=== PATIENT | female | born 1950 | race Caucasian/White ===

== ENCOUNTER 2024-08-14 14:25 | Inpatient (IN) | payer MEDICARE, OTHER ==
[2024-08-14 16:00] VITALS: BP 117/69; PULSE 75; RESP 15; TEMP 98.7; O2SAT 93
[2024-08-14 16:30] VITALS: RESP 14; O2SAT 95
[2024-08-14] MEDS ORDERED: magnesium sulf-water 2g/50mL 50 ML IV PRN (17:10)
[2024-08-14] MEDS ORDERED: mag hydrox/Alum hydrox/simeth 30ml oral suspension PO PRN (17:10)
[2024-08-14] MEDS ORDERED: HYDROcodone/acetaminophen 5mg/325mg tablet PO PRN (17:10)
[2024-08-14] MEDS ORDERED: potassium Cl 40MEQ/1/2NS 520ml 520 ML IV PRN (17:10)
[2024-08-14] MEDS ORDERED: glucagon, human recombinant 1mg kit SUBCUT PRN (17:10)
[2024-08-14] MEDS ORDERED: PERFLUTREN PROTEIN-A MICROSPHR (Optison) 0.22 MG/ML 3ML VIAL IV ONE (17:10)
[2024-08-14] MEDS: normal saline 1000ml 1,000 ML IV SCH (17:10)
[2024-08-14] MEDS ORDERED: DEXTROSE 15 GM of carb/4 tabs (each vial/BOTTLE has 4 tablets) PO PRN ×2 (17:10)
[2024-08-14] MEDS ORDERED: HYDROcodone/acetaminophen 10/325mg tab PO PRN (17:10)
[2024-08-14] MEDS ORDERED: magnesium sulf-water 4G/100mL 100 ML IV PRN (17:10)
[2024-08-14] MEDS ORDERED: potassium Cl 20 mEq SR tablet PO PRN ×2 (17:10)
[2024-08-14] MEDS ORDERED: dextrose 50%-water 50ml dispensing syringe IV PRN ×2 (17:10)
[2024-08-14] MEDS ORDERED: morphine 2 MG/ML inj. syringe IV PRN ×2 (17:10)
[2024-08-14] MEDS ORDERED: ondansetron/PF 4mg/2ml inj IV PRN (17:10)
[2024-08-14] MEDS ORDERED: acetaminophen 325mg tablet PO PRN ×2 (17:10)
[2024-08-14] MEDS ORDERED: magnesium hydroxide 30ml (MOM) UD suspension PO PRN (17:10)
[2024-08-14] MEDS ORDERED: heparin 25,000 UNIT/250ml bag 250 ML IV PRN (17:25)
[2024-08-14] MEDS: HEPARIN DRIP INITAL BOLUS --- DO NOT GIVE/ORDER MC ONE (17:25)
--- NOTE | 2024-08-14 17:57 | HISTORY AND PHYSICAL ---
History & Physical Providers to CC ~ History of Present Illness Reason for Admit\Complaint: Chest pain eval for NSTEMI\medical noncompliance History of Present Illness This is a 73-year-old female who had a CVA last month with both receptive and expressive aphasia that is mild and visual changes with worsening of her macular degeneration. The patient presented to [facility] ED today with chief complaint of anginal equivalents since last evening at 8:00 p.m she was eating a [employer] dinner when she noticed that she has a left arm pain that radiated to her chest anteriorly and back and the patient became short of breath and felt hot and sweaty. Substance has been intermittent she presented to [facility] ED this morning had a troponin that was negative however the Lexiscan stress test was obtained which demonstrated a small reversible defect at the apex thus the patient was transferred to [facility]- a serial troponins ordered an echocardiogram is ordered I spoke with phlebotomy specialist Dr. Steen who recommended starting aspirin and Plavix and advised against a cardiac catheterization. I went to speak with the patient however the patient was refusing all care at this time including blood glucose and all other treatments including labs. The patient has no way of getting back home this evening and thus we will keep the patient overnight and observe her for any further episodes of chest pain or anginal equivalents. 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, macular degeneration, [id number] diabetes mellitus, hyperlipidemia, hypertension, morbid obesity, COPD, obstructive sleep apnea no longer on BiPAP or CPAP Past Surgical History Surgical History Comment Tubal ligation, LASIK eye surgery, tonsillectomy Family History Family History: FH: lung cancer MOTHER FH: myocardial infarction MOTHER Past Social History Social History Comment Stopped smoking cigarettes a few years ago had a eight year period where she smoked three packs of cigarettes a day had stopped prior to this and had smoked earlier in her life as well, denies any alcohol or illicit drug use. Full code status ROS ROS Except for positives in the HPI the rest of the 14 point review systems is negative Exam Vitals: Vital Signs Date Time Temp Pulse Resp B/P (MAP) Pulse Ox O2 Delivery O2 Flow Rate FiO2 08/14/24 16:41 71 General: Gen. No acute distress alert and oriented 4- the patient was answers are delayed, morbidly obese Lungs clear to ascultation bilaterally, no wheezes rales or rhonchi appreciated Heart normal sinus rhythm no murmurs rubs or clicks noted Abdomen soft nontender bowel sounds are normoactive Lower extremities no clubbing cyanosis, nor edema appreciated bilaterally Counseling Services Smoking & Tobacco Cessation: N/A Advance Care Planning Advanced Care plannin - 30 Minutes Problems: (1) Anginal equivalent Additional Plan # anginal equivalents eval for NSTEMI- initial troponin was negative at [facility], the patient has a positive Lexiscan stress test with a small area of reversible defect at the apex which I reviewed this finding with Dr. Steen phlebotomy specialist's who stated this was a false-positive test due to the patient's obesity. Serial troponins are ordered and Dr. Steen recommended aspirin and Plavix for the patient to take however the patient is refusing all lab draws at this juncture in all treatments. # [id number] diabetes mellitus- hyper and hypoglycemic protocol is ordered however the patient was refusing fingerstick blood glucose checks. # COPD not in acute exacerbation- p.r.n. DuoNeb is ordered # hyperlipidemia- fasting lipid panel is ordered the patient is not likely to allow us to draw her lipid panel # obstructive sleep apnea- the patient informs me that her machine has been broken for years and she was not obtained a new CPAP or BiPAP # DVT prophylaxis SCDs- aspirin and Plavix is ordered I spent a total of 17 minutes on reviewing various resuscitative measures/ ACP with the patient at the time of admission. The patient has decided on a full code status Disposition: Patient was refusing all treatments and lab draws at this time - discussed the case with on-call phlebotomy specialist Dr. Steen who recommended aspirin and Plavix the patient to follow up with her phlebotomy specialist's- since the patient is refusing all treatments and workup unless this changes the patient will be discharged tomorrow with recommendations to follow up with her primary care provider. Date of Service: Aug 14, 2024 Billing Provider: DIMAS LOCKETT DO Common Visit Codes: 84666-QWPRHMW INP/OBS CARE (HIGH) Secondary Visit Codes: 29349-[id number] CARE PLAN 30 MINUTES DIMAS LOCKETT DO Aug 14, 2024 17:57
[2024-08-14] MEDS: MESSAGE TO NURSING IV ONE (18:56)
--- NOTE | 2024-08-14 19:53 | CONSULTATION REPORT ---
Cardiac Consultation Report Providers to CC ~ Subjective Subjective Cardiology consultation: Records reviewed patient examined. She was admitted at [facility] on 08/13 where she presented for numbness in her arm chest with persistent chest discomfort and was hospitalized troponins were normal and she had a Lexiscan that showed possible small apical reversible ischemia. Dr. Castillo accepted her in transfer for coronary angiography. Patient tells me that she is upset and wants to go home she has been here since 2:00 p.m. and nothing has been done. She was promised that she would go home by ambulance as her can not drive. She seems chronically ill and has either a past stroke or some sort of mental deterioration. On records from [facility] there is no mention of prior stroke. She wanted to leave against medical advice and take a taxi home. However turns out that she lives in [place]. That is as per nursing machining supervisor on floor. At this time it appears she has marking time here until somebody can take her home tomorrow morning. Records from [facility] where she was hospitalized state bronchial asthma diabetes mellitus hyperlipidemia neuropathy unspecified cancer stroke-like symptoms urinary tract infection. Past surgeries include breast biopsy Lasix surgery tonsillectomy tubal ligation. She tells me that she has been using a walker for four years due to low back pain. Allergies niacin there is mention that she had an echocardiogram on recent admission which I presume is when her stroke occurred. She can not tell me what is the etiology of her stroke. Can not tell me who her family physician is or what clinic she goes to. At this time she is pain-free and just wants to go home. Objective Vitals Vital Signs Date Time Temp Pulse Resp B/P (MAP) Pulse Ox O2 Delivery O2 Flow Rate FiO2 08/14/24 16:41 71 08/14/24 16:30 14 95 Room Air 08/14/24 16:00 98.7 117/69 (85) Objective Carotid no bruit chest clear to auscultation percussion heart no murmur peripheral pulses intact. Electrocardiogram no acute ST-T changes her troponins have been normal. Problem\Assessment\Plan Additional Plan Impression: Unable to obtain meaningful symptoms from patient. Her nuclear scan was possible not diagnostic for apical reversible ischemia. He had hours of numbness tingling chest pain in the hospital at [facility] with normal troponins. Recommendation: Guideline directed therapy; home at your convenience or ability to get patient home. TARA PADILLA MD Aug 14, 2024 19:53
[2024-08-14] MEDS ORDERED: docusate sod 100mg capsule PO SCH (20:00)
[2024-08-14] MEDS ORDERED: enoxaparin 40mg/0.4ml syringe SQ SCH (20:00)
[2024-08-14] MEDS ORDERED: K and/or MAG REPLACEMENT MC SCH (20:00)
[2024-08-14] MEDS ORDERED: INSULIN LISPRO 100 UNIT/ML INSULN.PEN MULTI-DOSE SQ SCH (21:00)
--- NOTE | 2024-08-15 07:48 | DISCHARGE SUMMARY ---
Discharge Summary Providers to CC ~ Discharge Summary Admission Diagnosis: Chest pain eval for NSTEMI Hospital Course DATE OF ADMISSION: 08/14/2024 DATE OF DISCHARGE: 08/14/2024 Discharge Diagnosis\\Comment: Anginal equivalents, [id number] diabetes mellitus, COPD, hyperlipidemia, obstructive sleep apnea Operations\\Procedures: None Consultants: Dr. Sebastian Steen human resources file clerk Complications: Unknown the patient left AMA Condition on DC: Stable (Vital signs were stable however unknown patient refused labs and all services other than initial assessment with vital signs) Discharge Summary: I admitted the patient with the following HPI: This is a 73-year-old female who had a CVA last month with both receptive and expressive aphasia that is mild and visual changes with worsening of her macular degeneration. The patient presented to [facility] ED today with chief complaint of anginal equivalents since last evening at 8:00 p.m she was eating a [employer] dinner when she noticed that she has a left arm pain that radiated to her chest anteriorly and back and the patient became short of breath and felt hot and sweaty. Substance has been intermittent she presented to [facility] ED this morning had a troponin that was negative however the Lexiscan stress test was obtained which demonstrated a small reversible defect at the apex thus the patient was transferred to [facility]- a serial troponins ordered an echocardiogram is ordered I spoke with human resources file clerk Dr. Steen who recommended starting aspirin and Plavix and advised against a cardiac catheterization. I went to speak with the patient however the patient was refusing all care at this time including blood glucose and all other treatments including labs. The patient has no way of getting back home this evening and thus we will keep the patient overnight and observe her for any further episodes of chest pain or anginal equivalents. The patient was evaluated by Dr. Sebastian Steen human resources file clerk with the following impression: " Unable to obtain meaningful symptoms from patient. Her nuclear scan was possible not diagnostic for apical reversible ischemia. He had hours of numbness tingling chest pain in the hospital at [facility] with normal troponins." And Dr. Steen recommended guideline directed therapy. The patient called a cab and left AMA at 8:18 p.m. *Problems/Diagnosis: (1) Anginal equivalent Total Time Spent on D/C: Up to 30 Minutes Date of Service: Aug 15, 2024 Billing Provider: DIMAS LOCKETT DO Common Visit Codes: NOT BILLABLE (Patient left AMA at 8:18 p.m.) DIMAS LOCKETT DO Aug 15, 2024 07:48
== END 2024-08-14 22:30 | disposition left against medical advice (07) | DRG 311 ==
LOC: UNDOADMIN 14:25 → PCU 3S 14:25 → UNDODISIN 22:30
PROVIDERS: ADMIT Family Medicine; ATTEND Internal Medicine
DX: I20.89 Other forms of angina pectoris (principal); H35.30 Unspecified macular degeneration; Z53.29 Procedure and treatment not carried out because of patient's decision for other reasons; M79.602 Pain in left arm; I10 Essential (primary) hypertension; E78.5 Hyperlipidemia, unspecified; G47.33 Obstructive sleep apnea (adult) (pediatric); J44.89 Other specified chronic obstructive pulmonary disease; E11.40 Type 2 diabetes mellitus with diabetic neuropathy, unspecified; I69.320 Aphasia following cerebral infarction; I69.312 Visuospatial deficit and spatial neglect following cerebral infarction; Z79.899 Other long term (current) drug therapy; Z79.84 Long term (current) use of oral hypoglycemic drugs; Z88.8 Allergy status to other drugs, medicaments and biological substances; Z80.1 Family history of malignant neoplasm of trachea, bronchus and lung; Z82.49 Family history of ischemic heart disease and other diseases of the circulatory system; Z87.891 Personal history of nicotine dependence
CPT/HCPCS: 87081; G0378; J1815